=== PATIENT | female | born 1950 | race Caucasian/White ===

== ENCOUNTER → 2017-09-10 | Outpatient (REF) | payer MEDICARE, OTHER | LOC: M LAB REF 17:45 | PROVIDERS: ATTEND Obstetrics & Gynecology | DX: Z12.4 Encounter for screening for malignant neoplasm of cervix (principal); R87.615 Unsatisfactory cytologic smear of cervix | CPT/HCPCS: 87624; G0123 ==

== ENCOUNTER → 2018-03-13 | Outpatient (REF) | payer MEDICARE, OTHER ==
[2018-03-15 14:11] LABS: HPV HYBRID CAPTURE II Negative (Negative)
== END ==
LOC: M LAB REF 18:10
DX: Z12.72 Encounter for screening for malignant neoplasm of vagina (principal)
CPT/HCPCS: G0123

== ENCOUNTER → 2021-10-09 | Outpatient (CLI) | payer MEDICARE, OTHER ==
--- NOTE | 2021-10-10 15:27 | REPMRS ---
Patient History The patient states she had a clinical breast exam in December 2020. Patient is postmenopausal and has history of endometrial cancer at age 66. Family history of breast cancer at age 82 in mother. Tomosynthesis is performed. Volpara breast density is b[facility]%. Patient states no breast complaints today. Patient has signed MRS History Sheet. Digital Woman Screen Mammo: October 09, 2021 - Exam #: [id number] Bilateral CC and MLO view(s) were taken. Technologist: Samira Cuadra Technologist FINDINGS: There are scattered fibroglandular densities. There has been no change in the appearance of the mammogram from the prior studies. There is a mild amount of residual fibroglandular tissue which is fairly symmetric. There is no interval development of dominant mass, architectural distortion, or clustered microcalcification suggestive of malignancy. Assessment: BI-RADS/ACR category 1 mammogram. Negative Mammogram. Recommendation Routine screening mammogram in 1 year (for women over age 40). This mammogram was interpreted with the aid of an FDA-approved computer-aided dectection system. Electronically Signed By: Jesse Shaikh MD 10/10/21 [id number]
== END ==
LOC: M WHC 10:24
PROVIDERS: ATTEND Obstetrics & Gynecology
DX: Z12.31 Encounter for screening mammogram for malignant neoplasm of breast (principal); Z80.3 Family history of malignant neoplasm of breast; Z80.49 Family history of malignant neoplasm of other genital organs

== ENCOUNTER → 2021-11-30 | Outpatient (CLI) | payer MEDICARE, BC, OTHER ==
[~2021-11-30] MED LIST: BARIUM SULFATE 700 MG TABLET (E-Z-DISK) As Ordered ONE; E-Z-PAQUE 96% w/w SUSP 176GM BTL As Ordered ONE; VARIBAR NECTAR 40% w/v 240ML SUSP BTL As Ordered ONE; VARIBAR PUDDING 40% w/v 230ML TUBE As Ordered ONE
--- NOTE | 2021-11-30 16:36 | REP ---
INDICATION: R13.12 DYSPHAGIA. COMPARISON: NONE TECHNIQUE: The procedure was performed under the direct supervision of . The procedure was performed with Lluvia Lopez from speech pathology present. 5 cc aliquots of thin, pudding, mixed fruit, soft and solid consistency barium was administered. 1.2 minutes of fluoroscopy time was utilized for this procedure. FINDINGS: There is no evidence of penetration or aspiration. IMPRESSION: There is no evidence of penetration or aspiration. A detailed report of this examination will be provided by speech pathology. <Electronically signed by Cody Marcelo > 11/30/21 1628 <Electronically signed by Jesse Shaikh > 11/30/21 [id number]
== END ==
LOC: M RAD 10:08
PROVIDERS: ATTEND Internal Medicine Gastroenterology
DX: R13.12 Dysphagia, oropharyngeal phase (principal)

== ENCOUNTER → 2022-02-02 | Outpatient (CLI) | payer MEDICARE, OTHER ==
[~2022-02-02] MED LIST changes: +ATOR1TAB19 PO; -BARIUM SULFATE 700 MG TABLET (E-Z-DISK) As Ordered ONE; -E-Z-PAQUE 96% w/w SUSP 176GM BTL As Ordered ONE; +HYDR-3490 PO; +LOSA25TA13 PO; +OMEP40CA5 PO; +OXYB10TA23 PO; -VARIBAR NECTAR 40% w/v 240ML SUSP BTL As Ordered ONE; -VARIBAR PUDDING 40% w/v 230ML TUBE As Ordered ONE
== END ==
LOC: M LABSMTC 10:04
PROVIDERS: ATTEND Anesthesiology
DX: Z01.812 Encounter for preprocedural laboratory examination (principal); Z20.822 Contact with and (suspected) exposure to COVID-19

== ENCOUNTER 2022-02-07 09:52 | Day surgery (SDC) | payer MEDICARE, BC, OTHER ==
[~2022-02-07] VITALS: Ht 154.9 cm; Wt 73.0 kg
[~2022-02-07 09:52] MED LIST changes: +NS 1,000 ML IV ONE
[2022-02-07] MEDS ORDERED: LIDOCAINE 2% 100MG/5ML SDV (FOR ANES.) As Ordered ONE (11:18)
[2022-02-07] MEDS ORDERED: propofoL 200 MG/20 ML VIAL As Ordered ONE (11:18)
[2022-02-07] MEDS ORDERED: fentaNYL 100 MCG/2 ML INJECTION As Ordered ONE (11:19)
[2022-02-07 12:01] VITALS: BP 131/61
== END 2022-02-07 12:02 | disposition home or self-care (01) ==
LOC: M OPP 09:52
PROVIDERS: ATTEND Internal Medicine Gastroenterology
DX: K44.9 Diaphragmatic hernia without obstruction or gangrene (principal); R13.10 Dysphagia, unspecified; E78.5 Hyperlipidemia, unspecified; Z90.49 Acquired absence of other specified parts of digestive tract; Z90.89 Acquired absence of other organs; Z90.710 Acquired absence of both cervix and uterus; Z79.899 Other long term (current) drug therapy
CPT/HCPCS: 43249; J3010